=== PATIENT | male | born 1995 | race Caucasian/White ===

== ENCOUNTER 2017-12-10 16:57 | Emergency (ER) | payer OTHER ==
[2017-12-10 17:02] VITALS: BP 148/97; PULSE 76; RESP 20; TEMP 97.8; O2SAT 99
--- NOTE | 2017-12-10 17:41 | C.PDOC ---
History Of Present Illness 22 year old male patient presents to the ER with c/o recurrent left shoulder dislocation. Patient reports he reached for a pencil on his desk and it spontaneously dislocated "too many times to remember". Patient denies weakness, numbness and change in sensation. Time Seen by Provider: 12/10/17 17:38 Chief Complaint (Nursing): Upper Extremity Problem/Injury History Per: Patient History/Exam Limitations: no limitations Onset/Duration Of Symptoms: Days Current Symptoms Are (Timing): Still Present Past Medical History Reviewed: Historical Data, Nursing Documentation, Vital Signs Vital Signs: Last Vital Signs Temp 97.8 F 12/10/17 17:04 Pulse 76 12/10/17 17:04 Resp 20 12/10/17 17:04 BP 148/97 H 12/10/17 17:04 Pulse Ox 99 12/10/17 17:40 - [facility] Procedures CL REDUC DISLOC-SHOULDER (08/18/14) Family History: States: Unknown Family Hx - Social History Hx Tobacco Use: No Hx Alcohol Use: Yes Hx Substance Use: No - Immunization History Hx Tetanus Toxoid Vaccination: No Hx Influenza Vaccination: Yes Hx Pneumococcal Vaccination: No Review Of Systems Except As Marked, All Systems Reviewed And Found Negative. Musculoskeletal: Positive for: Other (dislocated left shoulder) Neurological: Negative for: Weakness, Numbness, Other (change in sensation) Physical Exam - Physical Exam Appears: Non-toxic, No Acute Distress, Other (tall, thin black male) Skin: Normal Color, Warm, Dry Head: Normacephalic Eye(s): bilateral: Normal Inspection Chest: Symmetrical, No Deformity Cardiovascular: Rhythm Regular Respiratory: Normal Breath Sounds Back: No CVA Tenderness Extremity: Capillary Refill (<2 sec), Other (+ dislocated left shoulder; delotoid step-off ) Pulses: Left Radial: Normal, Right Radial: Normal Neurological/Psych: Oriented x3, Normal Speech ED Course And Treatment O2 Sat by Pulse Oximetry: 99 (RA) Medical Decision Making Medical Decision Making: Plans: -- ibuprofen Procedure: small weight BEKAH wrap applied. supine position. let arm angle. gradually change bed height with medial left scapula spontaneous return. spontaneous recurrent L shoulder disloc reaching for an object on the desk reduced by gentle gravity traction without sedation clinically improved and back to normal distal NV intact Disposition Doctor Will See Patient In The: Office Counseled Patient/Family Regarding: Studies Performed, Diagnosis - Disposition Referrals: [facility] [Outside] [facility] [Outside] [facility] [Outside] Rios Varner III, MD [Staff Provider] - Disposition: HOME/ ROUTINE Disposition Time: 17:40 Condition: GOOD Additional Instructions: ice packs 1/2 hour per hour motrin 400-600 mg every 6 hours as needed Call to follow-up with Orthopedics to consider definitive surgical repair Instructions: Shoulder Dislocation Forms: [employer] (Japanese) - Clinical Impression Clinical Impression: Shoulder dislocation, recurrent - Scribe Statement The provider has reviewed the documentation as recorded by the Scribe Wisdom Do Provider Attestation: All medical record entries made by the Scribe were at my direction and personally dictated by me. I have reviewed the chart and agree that the record accurately reflects my personal performance of the history, physical exam, medical decision making, and the department course for this patient. I have also personally directed, reviewed, and agree with the discharge instructions and disposition.
== END 2017-12-10 17:58 | disposition home or self-care (01) ==
LOC: C.ER 16:57
DX: M24.412 Recurrent dislocation, left shoulder (principal)